=== PATIENT | female | born 1990 | race Caucasian/White ===

== ENCOUNTER 2017-10-26 01:00 | Outpatient (CLI) | payer OTHER ==
[~2017-10-26] VITALS: Ht 167.6 cm; Wt 99.1 kg
[~2017-10-26 01:00] MED LIST: BUSP15TA70 PO; IBUP-1050 PO; SERT25TA PO
[2017-10-26 02:33] VITALS: Ht 167.6 cm; Wt 99.1 kg
--- NOTE | 2017-11-01 13:11 | EDITING REQUIRED CODING QUERY ---
DIAGNOSIS NEEDED To promote full compliance with coding requirements relating to patient care, physician participation is requested in all cases of resident care spec uncertainty. Please assist us with the question(s) below: Coding Question: The patient received care in labor and delivery on 10/26/17 as noted within the record. Please document the diagnosis that is being addressed by the medication/treatment. Provider Response: DIAGNOSIS: rule out labor WEEKS OF GESTATION: 38.1 weeks Thank you for your assistance, Heike Ortiz - Communications Clerk
== END 2017-10-26 02:15 | disposition home or self-care (01) ==
LOC: C.OPB 01:00 → C.LD 01:00 → C.OPB 02:15
PROVIDERS: ATTEND Obstetrics & Gynecology
DX: Z34.83 Encounter for supervision of other normal pregnancy, third trimester (principal); Z3A.38 38 weeks gestation of pregnancy

== ENCOUNTER 2017-10-29 22:50 | Outpatient (CLI) | payer OTHER ==
[~2017-10-29] VITALS: Ht 167.6 cm; Wt 99.0 kg
[2017-10-30 00:01] VITALS: Ht 167.6 cm; Wt 99.0 kg
[2017-10-30] MEDS ORDERED: PRENTAB26 PO (19:24)
[2017-11-01] MEDS ORDERED: MTR600X PO (11:41)
--- NOTE | 2017-11-01 13:14 | EDITING REQUIRED CODING QUERY ---
DIAGNOSIS NEEDED To promote full compliance with coding requirements relating to patient care, physician participation is requested in all cases of home help aide uncertainty. Please assist us with the question(s) below: Coding Question: The patient received care in labor and delivery on 10/30/17 as noted within the record. Please document the diagnosis that is being addressed by the medication/treatment. Provider Response: DIAGNOSIS: , rule out labor WEEKS OF GESTATION: 39 weeks Thank you for your assistance, Heike Ortiz - Electronics Engineering Manager
== END 2017-10-30 01:58 | disposition home or self-care (01) ==
LOC: C.OPB 22:50 → C.LD 22:50 → C.OPB 10-30 01:58
PROVIDERS: ATTEND Obstetrics & Gynecology
DX: Z34.83 Encounter for supervision of other normal pregnancy, third trimester (principal); Z3A.39 39 weeks gestation of pregnancy

== ENCOUNTER 2017-10-30 18:09 | Inpatient (IN) | payer OTHER ==
[~2017-10-30] VITALS: Ht 167.6 cm; Wt 99.1 kg
[2017-10-30] MEDS ORDERED: LACTATED RINGER'S 1000ML 1,000 ML IV PRN (18:28)
[2017-10-30] MEDS ORDERED: LACTATED RINGER'S 1000ML 1,000 ML IV SCH ×2 (18:28→21:45)
[2017-10-30 18:48] LABS: HEMATOCRIT 43.4 % (37-47); HEMOGLOBIN 15.3 g/dL (12.0-16.0); MEAN CORPUSCULAR HEMOGLOBIN 34.5 pg (25-34); MEAN CORPUSCULAR HGB CONC 35.3 g/dl (32-36); MEAN PLATELET VOLUME 11.4 fL (7.4-10.4); PLATELET COUNT 122 K/uL (130-400); RED CELL DISTRIBUTION WIDTH SD 46.7 fL (36.4-46.3); WHITE BLOOD COUNT 13.89 K/uL (4.8-10.8)
[2017-10-30 18:55] VITALS: Ht 167.6 cm; Wt 99.1 kg
[2017-10-30] MEDS ORDERED: PRENTAB26 PO (19:24)
[2017-10-30] MEDS ORDERED: LACTATED RINGER'S 1000ML 500 ML IV PRN (20:31)
[2017-10-30] MEDS ORDERED: OXYTOCIN 30 UNITS/500ML NSS IV PRN ×2 (20:45→21:45)
[2017-10-30] MEDS ORDERED: EpHEDrine SULFATE INJ 50 MG/ML AMP ONE (20:45)
[2017-10-30] MEDS ORDERED: BUPIVACAINE 0.25% 30 ML VIAL ONE (20:45)
[2017-10-30] MEDS ORDERED: FENTANYL CITRATE INJ 50 MCG/1 ML 2 ML VIAL ONE (20:46)
[2017-10-30] MEDS ORDERED: FENTANYL 2MCG/ML ROPIV 1.25MG/ML 100ML BAG EPI ONE (20:47)
[2017-10-30] MEDS ORDERED: TERBUTALINE SULFATE 1 MG/ML VIAL ONE (21:44)
[2017-10-30] MEDS ORDERED: HYDROCORTISONE ACETATE 25 MG SUPP PR PRN (21:45)
[2017-10-30] MEDS ORDERED: SUPERCREAM 0.870 % 15GM JAR EXT PRN (21:45)
[2017-10-30] MEDS ORDERED: LANOLIN OINT EXT PRN (21:45)
[2017-10-30] MEDS ORDERED: DIPHTHERIA/TETANUS/PERTUSSIS 0.5 ML SYR/VIAL IM. ONE (21:45)
[2017-10-30] MEDS ORDERED: ACETAMINOPHEN 325 MG TAB PO PRN (21:45)
[2017-10-30] MEDS ORDERED: BENZOCAINE 20% AER SPR 82.5 GM CAN EXT PRN (21:45)
[2017-10-30] MEDS ORDERED: MEASLES, MUMPS & RUBELLA VIRUS VIAL SQ. ONE (21:45)
[2017-10-30] MEDS ORDERED: IBUPROFEN 600 MG TAB ONE (21:52)
[2017-10-30] MEDS: IBUPROFEN 600 MG TAB PO PRN (22:26)
--- NOTE | 2017-10-30 23:26 | DELIVERY SUMMARY ---
DATE OF OPERATION: 10/30/2017 DELIVERY NOTE DATE OF DELIVERY: 10/30/2017 TIME OF DELIVERY OF BABY: 2112 hours. TIME OF DELIVERY OF PLACENTA: 2124 hours. DETAILS OF DELIVERY: The patient was found to be fully dilated and desired to push. She pushed with 2 contractions, delivered the head without difficulty. Shoulders were delivered with minimal traction. Baby was handed off to the mother. Mouth and nose were suctioned. Cord was clamped x3 and cut. Cord blood was obtained. It was 3-vessel cord. Perineum and vagina were checked for lacerations. There were small first-degree lacerations in the posterior fourchette and the right labia. They were repaired with 3-0 Vicryl with [id number] stitches. Lidocaine 1% was used for local anesthesia. Excellent hemostasis was achieved. Placenta was found in the vagina and delivered spontaneously as intact and complete. Uterus was explored and found to be empty. Fundus was firm. Lower segment was cleared of all clots and debris. EBL was 300. Mom and baby tolerated the procedure well. There was a viable male infant. Apgars 8/10. No complications happened. I was present during the whole procedure. At the end of the procedure, sponge, instrument, and needle counts were correct x2. I attest to the content of the Intraoperative Record and any orders documented therein. Any exceptions are noted below. RADHAD
[2017-10-31] VITALS (7 sets, daily range): BP systolic 100–131; BP diastolic 67–85; PULSE 69–92; TEMP 36.3–36.9; O2SAT 98–99
[2017-10-31] MEDS: IBUPROFEN 600 MG TAB PO PRN ×3 (04:39→18:33)
--- NOTE | 2017-10-31 07:02 | OB/GYN Progress Note ---
[employer] Progress Note Date of Service Oct 31, 2017. Subjective conversation w/ patient, physical exam Ambulation: ambulating normally Voiding: no voiding problems Passing Gas: Yes Diet Tolerance: Regular Diet Lochia: Moderate Pain: 07/25 Notes: Doing well, no concerns. Pain well controlled. Tolerating regular diet. Ambulating without difficulty. Objective Vital Signs Date Time Temp Pulse Resp B/P (MAP) Pulse Ox O2 Delivery O2 Flow Rate FiO2 10/31/17 04:30 36.5 81 18 117/68 (84) Room Air 10/31/17 00:15 36.6 18 124/67 (86) Room Air 10/31/17 00:15 Room Air Physical Exam General Appearance: WELL-APPEARING Respiratory/Chest: chest non-tender, lungs clear Cardiovascular: regular rate, rhythm Abdomen: normal bowel sounds, soft Fundus: Firm Extremities: normal range of motion, non-tender, no calf tenderness Laboratory Results Last 24 Hours Test 10/30/17 18:39 10/31/17 06:47 White Blood Count 13.89 K/uL Red Blood Count 4.43 M/uL Hemoglobin 15.3 g/dL Hematocrit 43.4 % Mean Corpuscular Volume 98.0 fL Mean Corpuscular Hemoglobin 34.5 pg Mean Corpuscular Hemoglobin Concent 35.3 g/dl RDW Standard Deviation 46.7 fL RDW Coefficient of Variation 13.0 % Platelet Count 122 K/uL Mean Platelet Volume 11.4 fL Assessment and Plan Post- Day Number: 1 Continue Routine Care: -Continue routine care -Anticipate D/C home tomorrow AM
[2017-10-31 07:10] LABS: HEMATOCRIT 34.1 % (37-47); HEMOGLOBIN 12.3 g/dL (12.0-16.0)
[2017-10-31] MEDS: FERROUS SULFATE 325 MG TAB PO SCH (07:26)
[2017-10-31] MEDS: PRENATAL VITAMIN TAB PO SCH (07:26)
[2017-10-31] MEDS: DOCUSATE SODIUM 100 MG CAP PO SCH ×2 (07:26→20:00)
[2017-10-31] MEDS ORDERED: BISACODYL 5 MG TABEC PO SCH (20:00)
[2017-11-01 06:27] LABS: HEMATOCRIT 37.7 % (37-47); HEMOGLOBIN 12.7 g/dL (12.0-16.0); MEAN CELL VOLUME 101.1 fL (80-100); MEAN CORPUSCULAR HGB CONC 33.7 g/dl (32-36); MEAN PLATELET VOLUME 11.2 fL (7.4-10.4); PLATELET COUNT 117 K/uL (130-400); RED CELL DISTRIBUTION WIDTH CV 13.3 % (11.5-14.5); RED CELL DISTRIBUTION WIDTH SD 48.9 fL (36.4-46.3); WHITE BLOOD COUNT 10.34 K/uL (4.8-10.8)
[2017-11-01] MEDS ORDERED: BISACODYL 10 MG SUPP PR PRN (07:00)
[2017-11-01] MEDS: DOCUSATE SODIUM 100 MG CAP PO SCH (08:18)
[2017-11-01] MEDS: FERROUS SULFATE 325 MG TAB PO SCH (08:18)
[2017-11-01] MEDS: PRENATAL VITAMIN TAB PO SCH (08:18)
[2017-11-01 08:24] VITALS: BP 124/75; PULSE 71; TEMP 36.3; O2SAT 96
[2017-11-01 08:56] VITALS: O2SAT 96
[2017-11-01] MEDS ORDERED: MTR600X PO (11:41)
--- NOTE | 2017-11-01 11:41 | OB/GYN Progress Note ---
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 Subjective conversation w/ patient, physical exam Ambulation: ambulating normally Voiding: no voiding problems Passing Gas: Yes Diet Tolerance: Regular Diet Lochia: Moderate Review of Systems Constitutional: No fever, No chills, No sweats, No weight loss, No weakness, No fatigue, No problem reported Respiratory: No cough, No sputum, No wheezing, No shortness of breath, No dyspnea on exertion, No dyspnea at rest, No hemoptysis, No problem reported Cardiac: No chest pain, No orthopnea, No PND, No edema, No claudication, No palpitations, No problem reported Breast: No see HPI, No breast lump, No change in shape, No nipple discharge, No breast pain, No problem reported Abdomen: No pain, No nausea, No vomiting, No diarrhea, No constipation, No GI bleeding, No problem reported Female : No see HPI, No dysuria, No urinary frequency, No hematuria, No incontinence, No abnormal vaginal bleeding, No vaginal discharge, No problem reported Objective Vital Signs Date Time Temp Pulse Resp B/P (MAP) Pulse Ox O2 Delivery O2 Flow Rate FiO2 11/01/17 08:56 96 Room Air 11/01/17 08:24 36.3 71 14 124/75 (91) 96 Room Air 10/31/17 23:40 36.3 69 20 111/76 (88) 98 Room Air 10/31/17 23:40 98 Room Air 10/31/17 19:20 36.5 72 18 123/85 (98) Room Air 10/31/17 15:15 99 Room Air 10/31/17 15:15 36.3 92 18 131/83 (99) 99 Room Air 10/31/17 12:00 36.9 69 20 100/73 (82) 98 Room Air Physical Exam General Appearance: WELL-APPEARING, WD/WN, NO APPARENT DISTRESS Respiratory/Chest: chest non-tender, lungs clear, normal breath sounds Cardiovascular: regular rate, rhythm, no edema, no gallop Abdomen: normal bowel sounds, non tender Fundus: Firm Incision Description: Clean, Dry & Intact Extremities: normal range of motion, non-tender, normal inspection Laboratory Results Last 24 Hours Test 11/01/17 06:09 White Blood Count 10.34 K/uL Red Blood Count 3.73 M/uL Hemoglobin 12.7 g/dL Hematocrit 37.7 % Mean Corpuscular Volume 101.1 fL Mean Corpuscular Hemoglobin 34.0 pg Mean Corpuscular Hemoglobin Concent 33.7 g/dl RDW Standard Deviation 48.9 fL RDW Coefficient of Variation 13.3 % Platelet Count 117 K/uL Mean Platelet Volume 11.2 fL Assessment and Plan Post- Day Number: 2 Continue Routine Care: PPD # 2 Pt doing well d/c home with instructions
--- NOTE | 2017-11-01 11:45 | Discharge Instructions ---
Discharge Instructions Date of Service Nov 01, 2017. Admission Reason for Admission: Check Labor Discharge Discharge Diagnosis / Problem: Discharge Goals Goal(s): Routine recovery after delivery Activity Recommendations Activity Limitations: as noted below ACTIVITY RECOMMENDATIONS: * Gradual return to full activity over the next 2-3 weeks. * No lifting - nothing heavier than baby over the next 2-3 weeks. * Do not engage in vigorous exercise, sexual activity or sports until cleared by your physician. * Do not drive or operate any motorized equipment until cleared by your physician. * You may shower/bathe daily. BREAST CARE: If you are not breast feeding: * Wear a supportive bra 24 hours a day for one to two weeks. * Avoid stimulating your breasts and nipples as much as possible during the first few weeks after delivery. * When taking a shower, have the warm water hit your back, not breasts. * When your breasts feel full, apply ice packs. Usually three to four times a day helps ease the discomfort. * Take a mild pain medication (Tylenol/Motrin) when you are uncomfortable. If breast feeding: * Use breast milk to lubricate nipples. Lansinoh cream may be used for sore nipples. You do not need to remove cream prior to breast feeding. If using a different brand of cream, check the label for directions regarding removal of cream prior to nursing. * Wear a supportive bra. * If having problems with breasts or breast feeding, call a talent development consultant or your health care provider. EPISIOTOMY CARE: After delivery, if you have an episiotomy (stitches), the following steps will ease discomfort and aid healing. * For the first 24 hours after delivery, place ice packs next to your episiotomy to help reduce swelling. * After the first 24 hour-period, sitz baths, either portable or in the tub, are suggested. A shower with a shower arm sprayed over the episiotomy may be comforting. * Itzel care should be done after each voiding and bowel movement. Squirt warm water from a plastic bottle over the perineum (region of the body between the anus and urinary opening) and pat dry. * Use Dermoplast to ease discomfort. Shake container. Sidell directly over the episiotomy. * Place a Tucks on a clean sanitary pad next to your episiotomy. OVER THE COUNTER MEDICATION: * For discomfort or pain, you may use Acetaminophen (Tylenol), Ibuprofen (Advil ), or Naproxen (Aleve) following the package directions. * For constipation you may use Colace following the package directions. SPECIAL CARE INSTRUCTIONS: When you are discharged from the hospital, it is important for you to follow the instructions listed below: * During the first week at home, you should be able to care for yourself and your baby. In addition, the usual light household activities are encouraged. * Limit your activities to the way you feel. Do not try to clean the house or move furniture. Be sensible. * If you actively engage in sports and have done so up until the time of your delivery, you may resume these activities as soon as you feel able. This may take up to one month or even longer. Use good judgment. * Continue to take your vitamins for at least six weeks after the of your baby. * Your diet need not be limited unless you were on a special diet before your delivery. Breast-feeding mothers need around 2500 calories per day and at least 64-80 ounces of fluid per day (8 to 10 glasses). * You should eat foods from the four major food groups. Crash diets or fad diets are to be avoided. Eating lean meats, fresh fruits and vegetables, low-fat dairy products, high fiber foods and a regular exercise program, will help you get back to your pre- weight without putting your health at risk. * Constipation is sometimes a problem after delivery. Take a mild laxative as needed. If breast feeding, Milk of Magnesia is acceptable to use. You may use a suppository or Fleets enema if no episiotomy. * A daily shower or tub bath is suggested. Be sure to thoroughly and gently dry the perineum. * A bloody vaginal discharge will usually continue until around four weeks post . A small amount of bleeding may continue for as long as six weeks. Vaginal discharge changes from the bright red bleeding after delivery to pink then brownish and finally yellowish-pink before becoming white and disappearing. * Bleeding may increase with activity. Your first period may come in 4-8 weeks. If you are breast feeding, your period may be delayed even longer. * Marissa (sex) can begin whenever both you and your partner feel comfortable and do not have any form of genital infection. It is recommended that you wait until after your return appointment and discuss with your physician. If you have questions, please talk to your health care practitioner. A condom should be used to prevent infection and . * Foreplay, gentle intercourse and lubrication is very important the first several times to prevent pain. A water-based lubricant such as K-Y jelly or Astroglide may be used. * Tampons may be used six weeks after delivery. * Douching should be avoided for 6 weeks after delivery. * If you have RH negative blood and your baby is RH positive, you will receive RHOGAM by injection prior to discharge. The nurse will give you a card to keep with you that has the date and place that you received RHOGAM after delivery. * During your care, you had a Rubella screen done to check for the presence of rubella antibodies in your blood. If your test was negative, you will receive a Rubella vaccine prior to discharge. This vaccine may cause a fever, soreness at the injection site and flu-like symptoms. If these symptoms persist, notify your health care practitioner. is not advised for three months after a Rubella vaccine. There is a higher chance of having a baby with defects if conceived within three months of getting the vaccine. * If you were discharged 24 hours from delivery or before 48 hours: Visiting nurses will come to your home 48 hours after discharge to assess you and your baby. The visiting nurse will meet with you while you are in the hospital to arrange a time and get directions to your home. * Verbalizes understanding of car seat law as reviewed with patient nursing. * Car Seat hand-out given and reviewed with patient by nursing. * Shaken baby information reviewed with patient by nursing. Call you doctor if: * Heavy bleeding (saturating several pads an hour) or passing clots the size of your fist. * A fever >101 degrees F (38.3 degrees C) on two occasions four hours apart and/or chills. * Unusual pain in the pelvic or vaginal areas. * "Baby Blues" lasting longer than two weeks. If you have any questions or concerns, call your health care practitioner at . FOLLOW-UP VISIT: * Please call the office at to schedule a 6 week examination. It is important you keep this appointment. * It is important for you to make arrangements for either yearly or twice yearly check-ups thereafter. . Current Hospital Diet Patient's current hospital diet: Regular OB Diet Discharge Diet Recommended Diet: Regular Diet Pending Studies Studies pending at discharge: no Medical Emergencies . Who to Call and When: Medical Emergencies: If at any time you feel your situation is an emergency, please call 911 immediately. . Non-Emergent Contact Non-Emergency issues call your: Specialist . . "Provider Documentation" section prepared by Ean Blank. .
[2017-11-01 13:54] VITALS: BP_DIAS 75; PULSE 71; TEMP 36.3
== END 2017-11-01 14:04 | disposition home or self-care (01) | DRG 775 ==
LOC: C.LD 18:09 → C.OPB 18:09 → C.LD 18:29 → C.OPB 18:29 → C.OBG 23:59
PROVIDERS: ADMIT Obstetrics & Gynecology; ATTEND Obstetrics & Gynecology
PROC: 0HQ9XZZ Repair Perineum Skin, External Approach (ICD-10-PCS; principal; 2017-10-30)
PROC: 10E0XZZ Delivery of Products of Conception, External Approach (ICD-10-PCS; principal; 2017-10-30)
DX: O99.334 Smoking (tobacco) complicating childbirth (principal); O70.0 First degree perineal laceration during delivery; F17.210 Nicotine dependence, cigarettes, uncomplicated; Z3A.38 38 weeks gestation of pregnancy; Z37.0 Single live birth